=== PATIENT | female | born 1960 | race Caucasian/White ===

== ENCOUNTER → 2018-06-24 | Outpatient (CLI) | payer BC | END | disposition home or self-care (01) | LOC: CFH 10:29 | PROVIDERS: ATTEND Nurse Practitioner Primary Care | DX: M79.672 Pain in left foot (principal) ==

== ENCOUNTER 2020-08-15 13:58 | Emergency (ER) | payer BC ==
[~2020-08-15] VITALS: Ht 160 cm; Wt 58.1 kg
[2020-08-15 15:19] LABS: BASOPHILS % (AUTO) 0 % (0-1); EOSINOPHILS % (AUTO) 1 % (1-7); LYMPHOCYTES % (AUTO) 30 % (22-44); MEAN CORPUSCULAR HEMOGLOBIN 31.1 pg (27.0-34.8); MEAN CORPUSCULAR HGB CONC 33.1 g/dL (32.4-35.8); MEAN PLATELET VOLUME 8.7 fL (7.4-10.4); MONOCYTES % (AUTO) 8 % (2-9); NEUTROPHILS % (AUTO) 61 % (42-75); PLATELET COUNT 212 x10^3/uL (130-400); RED BLOOD COUNT 4.32 x10^6/uL (3.82-5.3); RED CELL DISTRIBUTION WIDTH 13.9 % (9.6-15.2)
[2020-08-15 15:25] LABS: MD NO
[2020-08-15 15:29] LABS: ALBUMIN 3.7 g/dL (3.4-5.0); ANION GAP 6 mmol/L (5-15); CALCIUM 9.6 mg/dL (8.5-10.1); CHLORIDE 110 mmol/L (98-107)
[2020-08-15 15:40] LABS: ALANINE AMINOTRANSFERASE 33 U/L (12-78); ALKALINE PHOSPHATASE 81 U/L (45-117); BILIRUBIN,TOTAL 0.6 mg/dL (0.2-1.0); CREATININE 0.66 mg/dL (0.55-1.02); TOTAL PROTEIN 7.2 g/dL (6.4-8.2)
--- NOTE | 2020-08-15 17:18 | NUR ---
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
--- NOTE | 2020-08-15 17:27 | NUR ---
PATIENT WALKED BACK FROM [facility] WITH CHIEF C/O HYPERKALEMIA AND SAHNI. PER PATIENT SAHNI HAS BEEN ONGOING X2 WEEKS. PATIENT STATES SHE HAD COVID IN OCTOBER, AND SINCE THEN HAS INTERMITTENT CHEST PAIN AND SOB. FAITH AGUERO, CALL LIGHT WITHIN REACH.
--- NOTE | 2020-08-15 18:57 | NUR ---
PATIENT RESTING IN GURNEY, WARM BLANKET PROVIDED, NADN, VSS, CALL LIGHT WITHIN REACH.
[2020-08-15 19:00] LABS: HCT (SEDRATE) 40.7 % (34.6-47.8)
[2020-08-15 19:58] VITALS: BP 99/49
--- NOTE | 2020-08-15 20:09 | NUR ---
Patient given discharge instructions and prescription and they have confirmed that they understand the instructions, controlled substance contract signed. Patient stable and ambulatory with steady gait from ED to private vehicle.
== END 2020-08-15 20:10 | disposition home or self-care (01) ==
LOC: ED 20:04
DX: E87.5 Hyperkalemia (principal); G89.29 Other chronic pain; R51.9 Headache, unspecified; R07.89 Other chest pain
CPT/HCPCS: 36415; 80053; 84443; 85025; 85651; 93005; 99284

== ENCOUNTER → 2020-10-24 | Outpatient (CLI) | payer BC | END | disposition home or self-care (01) | LOC: CFH 08:27 | PROVIDERS: ATTEND Student in an Organized Health Care Education/Training Program | DX: Z12.31 Encounter for screening mammogram for malignant neoplasm of breast (principal) | CPT/HCPCS: 77063; 77067 ==